=== PATIENT | male | born 1935 | race Caucasian/White ===

== ENCOUNTER 2017-09-02 18:22 | Inpatient (IN) ==
[2017-09-02] MEDS ORDERED: 0.9 % Sodium Chloride 1,000 ML IVC ONE ×2 (18:45→19:25)
[2017-09-02] MEDS ORDERED: Vancomycin 1,000 MG in D5% in Water 250 ML IVPB ONE ×2 (19:09→23:00)
[2017-09-02] MEDS ORDERED: Piperacillin/Tazobactam 3.375 GM in D5% in Water (Mini-Bag+) 100 ML IVPB ONE (19:09)
--- NOTE | 2017-09-02 19:11 | Emergency Department Note ---
Disposition Clinical Impression: CHF exacerbation Qualifiers: Congestive heart failure type: systolic Qualified Code(s): I50.23 - Acute on chronic systolic (congestive) heart failure Sepsis Qualifiers: Sepsis type: sepsis due to unspecified organism Qualified Code(s): A41.9 - Sepsis, unspecified organism Pneumonia Qualifiers: Pneumonia type: due to unspecified organism Laterality: bilateral Lung location : lower lobe of lung Qualified Code(s): J18.9 - Pneumonia, unspecified organism Cellulitis Qualifiers: Site of cellulitis: extremity Site of cellulitis of extremity: lower extremity Laterality: unspecified laterality Qualified Code(s): L03.119 - Cellulitis of unspecified part of limb Disposition: Admitted As Inpatient Condition: Undetermined Referrals: Amaris Wood CNP [Primary Care Provider] - Forms: ED Satisfaction Letter Time of Disposition: 20:31 General Adult HPI - General Chief complaint: ED Shortness of Breath/Dyspnea Stated complaint: BOBBY Time Seen by Provider: 09/02/17 18:28 Source: patient, EMS Mode of arrival: EMS Limitations: no limitations Nursing Notes Reviewed: Yes Vital Signs Reviewed: Yes - History of Present Illness HPI Narrative: 82-year-old male with history of CHF that has been with fluid overload of the course of the past 3 weeks with an increase in his Lasix use arrives to [facility] emergency department with increased shortness of breath, fever, tremor, worsening swelling of bilateral lower extremities. The patient's family states that he is unable to get up and use the restroom due to overall weakness. The patient has been a slightly altered at home as well and not answering questions correctly according to the patient's son. The patient states he was recently in the emergency department for similar complaint and evaluation with the patient was discharged at this time. The patient's family members states they are concerned about pneumonia. The patient denies any chest pain this time, denies any abdominal pain, unilateral leg swelling, weakness one set of the other, headache, nuchal rigidity. The patient does admit to dyspnea. Onset (ago): week(s) (3) Pain Scale: 0 Improves with: nothing Worsens with: nothing Associated symptoms: Reports: cough, fever/chills, shortness of breath - Related Data Home Medications Medication Instructions Recorded Confirmed Aspirin Enteric Coated [Aspirin EC] 81 mg PO DAILY 06/27/15 06/27/15 Fenofibrate [Lofibra] 160 mg PO DAILY 06/27/15 06/27/15 Furosemide [Lasix] 40 mg PO DAILY 06/27/15 06/27/15 Gabapentin [Neurontin] 300 mg PO BID 06/27/15 06/27/15 GlipiZIDE [Glucotrol] 4 mg PO DAILY 06/27/15 06/27/15 Lisinopril [Zestril] 10 mg PO DAILY 06/27/15 06/27/15 Allergies Allergy/AdvReac Type Severity Reaction Status Date / Time sulfamethoxazole Allergy Nausea Verified 06/13/15 09:51 [From Bactrim] trimethoprim [From Bactrim] Allergy Nausea Verified 06/13/15 09:51 All systems ED: reviewed and negative except as stated. Constitutional: Reports: fever, chills. Denies: weakness Eyes: Denies: vision change ENT ED: Denies: congestion Cardiovascular: Reports: dyspnea on exertion, orthopnea, edema. Denies: chest pain, syncope Respiratory: Reports: dyspnea, sputum production. Denies: cough, wheezes Gastrointestinal: Denies: abdominal pain, nausea, vomiting Musculoskeletal: Denies: back pain Neurological: Reports: weakness. Denies: headache, numbness, paresthesias, confusion, abnormal gait Past Medical History - Past Medical History Attestation: Yes The following information was validated with the patient. Source: patient Medical history: Reports: CHF, COPD, coronary artery disease, diabetes, GERD, hyperlipidemia, hypertension, venous stasis Surgical history: Reports: appendectomy, cholecystectomy, coronary bypass (CABG) , herniorrhaphy Psychiatric history: Reports: depression - Social History Smoking Status: Former smoker Smokeless Tobacco Status: No Alcohol use: Reports: rarely Drug use: Reports: none Physical Exam - General Limitations: no limitations General appearance: alert, in no apparent distress - Head Head exam: atraumatic, normocephalic, normal inspection - Eye Eye exam: Present: normal appearance, PERRL, EOMI - ENT ENT exam: normal exam, normal oropharynx, mucous membranes moist - Neck Neck exam: Present: normal inspection, full ROM, trachea midline - Chest Chest inspection: Present: normal inspection, symmetric chest wall rise - Respiratory Respiratory exam: Present: accessory muscle use, prolonged expiratory phase, other (Rales). Absent: respiratory distress, wheezes - Cardiovascular Cardiovascular exam: Present: normal rhythm, tachycardia, normal heart sounds - Abdominal Exam Abdominal exam: Present: soft, Non-Tender. Absent: tenderness, distention, guarding, rebound, rigidity - Extremities Exam Extremities exam: Present: full ROM, tenderness, other (Bilateral lower extremity edema with heat and erythema and there are large amounts of fluid filled blisters on bilateral lower extremities. In addition the patient has mild ecchymotic lesions on the bilateral upper forearms. His appears to be bruising and not a rash like the patient is concerned about.) Course Vital Signs Temperature 99.9 F H 09/02/17 18:26 Pulse Rate 99 09/02/17 18:26 Respiratory Rate 14 09/02/17 18:26 Blood Pressure 133/72 09/02/17 18:26 O2 Sat by Pulse Oximetry 95 09/02/17 18:26 Temperature 99.9 F H 09/02/17 18:26 Pulse Rate 92 09/02/17 20:15 Respiratory Rate 28 09/02/17 20:15 Blood Pressure 110/67 09/02/17 20:15 O2 Sat by Pulse Oximetry 95 09/02/17 20:15 Oxygen Delivery Oxygen Delivery Room Air Medical Decision Making - MDM Narrative Medical decision making narrative: Patient's workup here in the emergency department consistent with both CHF exacerbation as well as concern for sepsis. The patient has a leukocytosis without a lactic acid. The patient has not been hypotensive here in the emergency department. Chest x-ray does demonstrate groundglass appearance consistent with possible pneumonia versus pulmonary edema. Given the patient's extensive bilateral lower surgery swelling and dyspnea, this is likely the etiology component exacerbating his difficulty breathing. The patient does note to have bilateral lower extremity cellulitis associated with the patient's fluid overload blisters. The patient was noted to have a pneumonia. The patient was started on BiPAP to attempt to push fluid out of his lungs. The patient was given IV fluids as well as IV antibiotic with concern for sepsis. The patient's blood pressure has remained stable. The patient's mentation has been appropriate since his arrival in the emergency department. The patient denies any other complaints at this time is resting comfortably on BiPAP. The patient will be admitted to the hospitalist service, accepted by Dr. Hauser. - Lab Data Lab results reviewed: Yes I reviewed the patient's lab results. Result diagrams: 09/02/17 19:13 09/02/17 19:13 Lab Results 09/02/17 09/02/17 09/02/17 Range/Units 19:13 19:13 19:13 WBC 10.5 (4.3-11.1) K/mcL RBC 5.18 (4.19-5.50) M/mcL Hgb 15.0 (12.9-16.9) g/dL Hct 49.2 (37.5-50.1) % MCV 95.0 (83.0-100.0) fL MCH 29.0 (28.0-33.3) pg MCHC 30.5 L (31.6-35.5) g/dL RDW 14.5 (11.5-14.5) % Plt Count 187 (140-400) K/mcL MPV 10.6 (9.4-12.4) fL Immature Gran % 0.6 (0-4) % Seg Neutrophils % 82.4 % Lymphocytes % 6.7 % Monocytes % 8.1 % Eosinophils % 1.7 % Basophils % 0.5 % Neutrophils # 8.7 (1.6-8.9) K/mcL Lymphocytes # 0.7 (0.6-4.6) K/mcL Monocytes # 0.9 (0.0-1.3) K/mcL Eosinophils # 0.2 (0.0-0.6) K/mcL Basophils # 0.1 (0.0-0.2) K/mcL Sodium 141 (136-145) mEq/L Potassium 5.0 H (3.5-4.5) mEq/L Chloride 94 L (98-109) mEq/L Carbon Dioxide 38 H (19-29) mEq/L BUN 44 H (8-26) mg/dL Creatinine 1.42 H (0.72-1.25) mg/dL Est GFR ( Amer) 58 L (> 60) Est GFR (Non-Af Amer) 48 L (> 60) BUN/Creatinine Ratio 31 H (6-26) Glucose 126 H (70-99) mg/dL Calculated Osmolality 305 H (280-300) Lactic Acid 2.1 (0.5-2.2) mmol/L Calcium 9.5 (8.6-10.8) mg/dL Phosphorus 1.6 L (2.3-4.7) mg/dL Magnesium 2.1 (1.6-2.6) mg/dL Troponin I (0-0.03) ng/mL B-Natriuretic Peptide (0-100) pg/mL 09/02/17 09/02/17 Range/Units 19:13 19:13 WBC (4.3-11.1) K/mcL RBC (4.19-5.50) M/mcL Hgb (12.9-16.9) g/dL Hct (37.5-50.1) % MCV (83.0-100.0) fL MCH (28.0-33.3) pg MCHC (31.6-35.5) g/dL RDW (11.5-14.5) % Plt Count (140-400) K/mcL MPV (9.4-12.4) fL Immature Gran % (0-4) % Seg Neutrophils % % Lymphocytes % % Monocytes % % Eosinophils % % Basophils % % Neutrophils # (1.6-8.9) K/mcL Lymphocytes # (0.6-4.6) K/mcL Monocytes # (0.0-1.3) K/mcL Eosinophils # (0.0-0.6) K/mcL Basophils # (0.0-0.2) K/mcL Sodium (136-145) mEq/L Potassium (3.5-4.5) mEq/L Chloride (98-109) mEq/L Carbon Dioxide (19-29) mEq/L BUN (8-26) mg/dL Creatinine (0.72-1.25) mg/dL Est GFR ( Amer) (> 60) Est GFR (Non-Af Amer) (> 60) BUN/Creatinine Ratio (6-26) Glucose (70-99) mg/dL Calculated Osmolality (280-300) Lactic Acid (0.5-2.2) mmol/L Calcium (8.6-10.8) mg/dL Phosphorus (2.3-4.7) mg/dL Magnesium (1.6-2.6) mg/dL Troponin I 0.02 (0-0.03) ng/mL B-Natriuretic Peptide 130 H (0-100) pg/mL - Radiology Data Radiology results reviewed: Yes I reviewed the patient's radiology results. - EKG Data EKG #1 EKG attestation: Yes I reviewed and interpreted this EKG. EKG results narrative: Heart rate 98 bpm. NC interval 140 ms. QTC 374 ms., Sinus rhythm. No ST elevation or ST depression noted. EKG similar in appearance to EKG from 2016. Attestation Statement - Attestation Attestation: I, Brian Henley DO, examined this patient [id number] and my medical decision-making was reviewed with Dr. Alec Hood, Resident Physician. I agree with the documented findings, disposition and treatment plan as described except to the extent set forth below. Please see my progress notes for details. 10-year-old male seen and examined the time of arrival. Patient presents emergency room for evaluation of shortness of breath generalized malaise confusion from home. Son is with him and confirms all these issues. Patient was just seen here about one week ago and discharged home. Patient is continued to have persistent issues since leaving our hospital. Patient has known cerebral distal lower extremities that appears to be worse than what it was prior. Patient has fluid overload with coarse crackles on his lung exam that are better when he sitting upright. He does describe some shortness of breath. Patient is not confused at this time is alert and oriented and this is confirmed by the son. The son said that he was definitely confused earlier this afternoon and did not know why. Patient is concerning for septic presentation started on broad-spectrum antibiotics covering for cellulitis, pneumonia. Also be treated for CHF exacerbation. Borderline febrile as well as tachycardic. Single given at this time as well as placing the patient on BiPAP to help pulmonary overload. IV Lasix to be given as well. Patient does have confounding presentation will attempt to control fluid and blood pressure with appropriate intervention despite his presentation with concern for fluid overload. Patient is not currently critically ill but will need close monitoring and evaluation. Disposition will be admission to the hospital for definitive management. See detailed documentation of the physical exam, medical intervention, medical decision-making and disposition.
[2017-09-02] MEDS ORDERED: Furosemide 40 MG/4 ML VIAL IVP ONE (19:25)
[2017-09-02 19:28] LABS: Basophils # 0.1 K/mcL (0.0-0.2); Basophils % 0.5 %; Eosinophils # 0.2 K/mcL (0.0-0.6); Eosinophils % 1.7 %; Hematocrit 49.2 % (37.5-50.1); Immature Granulocytes % 0.6 % (0-4); Lymphocytes # 0.7 K/mcL (0.6-4.6); Lymphocytes % 6.7 %; Mean Corpuscular HGB Conc 30.5 g/dL (31.6-35.5); Mean Platelet Volume 10.6 fL (9.4-12.4); Monocytes # 0.9 K/mcL (0.0-1.3); Monocytes % 8.1 %; Neutrophils # 8.7 K/mcL (1.6-8.9); Platelet Count 187 K/mcL (140-400); Red Blood Count 5.18 M/mcL (4.19-5.50); Red Cell Distribution Width 14.5 % (11.5-14.5); Segmented Neutrophils % 82.4 %
[2017-09-02 19:41] LABS: Calcium 9.5 mg/dL (8.6-10.8); Magnesium 2.1 mg/dL (1.6-2.6); Phosphorous 1.6 mg/dL (2.3-4.7)
[2017-09-02] MEDS ORDERED: Calcium Gluconate 1,000 MG in D5% in Water 100 ML IVPB ONE (20:51)
[2017-09-02] MEDS ORDERED: Furosemide 100 MG in 0.9 % Sodium Chloride 50 ML IVPB ONE (21:55)
[2017-09-02] MEDS ORDERED: Vancomycin 2,000 MG in D5% in Water 250 ML IVPB SCH (23:00)
[2017-09-02] MEDS ORDERED: NON-FORMULARY MEDICATION 1 EACH EACH (Oxygen [Oxygen] 2 L) NS SCH (23:15)
--- NOTE | 2017-09-02 23:19 | Internal Med History&Physical ---
Date of Encounter: 09/02/17 Time of Encounter: 23:17 Assessment and Plan (1) COPD exacerbation Current visit: Yes Status: Acute I would keep patient on IV steroids and [id number] nebulizer treatments. (2) CHF exacerbation Current visit: Yes Status: Acute I will start the patient on Lasix 80 mg IV twice-daily would placea amor catheter. Strict intake and output.. Qualifiers: Congestive heart failure type: systolic Qualified Code(s): I50.23 - Acute on chronic systolic (congestive) heart failure (3) Cellulitis Current visit: Yes Status: Acute We will start the patient on vancomycin and Zosyn. Blood cultures Qualifiers: Site of cellulitis: extremity Site of cellulitis of extremity: lower extremity Laterality: unspecified laterality Qualified Code(s): L03.119 - Cellulitis of unspecified part of limb (4) Hyperkalemia Current visit: Yes Status: Acute Should improve with aggressive diuresis. He also received sodium bicarb and Ca Gluconate. (5) Acute respiratory failure with hypoxia Current visit: Yes Status: Acute Mainly due to congestive heart failure exacerbation. Less Contribution from COPD exacerbation. We will get an arterial blood gas. Advised the patient uses BiPAP at night. Internal Medicine - H&P: HPI Chief complaint: sob History of present illness: Mr. Curtis is a 82 year old male with multiple medical problems including congestive heart failure, COPD, obstructive sleep apnea, chronic venous stasis presents emergency room today with a multitude of complains. Patient has been progressively short of breath with the past few days to the point where he is unable to breathe rest. Shortness of breath get worse when he lays on his back. He has also been noticing increased bilateral swelling in both lower extremities and both his legs are red warm and tender. He has been having fevers and chills. He has been having productive cough with scant sputum production. Past Med Surg Social Fam HX - Past Medical History Medical history: CHF, COPD, coronary artery disease, diabetes, GERD, hyperlipidemia, hypertension, venous stasis Psychiatric history: depression - Past Surgical History Surgical History: appendectomy, cholecystectomy, coronary bypass (CABG), herniorrhaphy - Social History Smoking Status: Former smoker Smokeless Tobacco Status: No Alcohol use: rarely Drug use: none Internal Medicine - H&P: Meds Aspirin Enteric Coated [Aspirin EC] 81 mg PO DAILY 06/27/15 [History] Fenofibrate [Lofibra] 160 mg PO DAILY 06/27/15 [History] Furosemide [Lasix] 40 mg PO TID 06/27/15 [History] Gabapentin [Neurontin] 900 mg PO QAM 06/27/15 [History] Albuterol Sulfate [Albuterol Inhaler] 2 puff IH Q4H PRN 09/02/17 [History] Gabapentin [Neurontin] 600 mg PO HS 09/02/17 [History] Glimepiride [Amaryl] 4 mg PO QAM 09/02/17 [History] Lisinopril [Zestril] 20 mg PO DAILY 09/02/17 [History] Oxycodone HCl/Acetaminophen [Percocet 7.5-325 mg Tablet] 1 each PO Q4-6H PRN [History] Oxygen 2 l NS AD 09/02/17 [History] 3 Allergy/AdvReac Type Severity Reaction Status Date / Time sulfamethoxazole Allergy Nausea Verified 06/13/15 09:51 [From Bactrim] trimethoprim [From Bactrim] Allergy Nausea Verified 06/13/15 09:51 All Systems PM: A 10-system review of systems was performed and is negative for pertinent findings except as documented above in the HPI. Review of systems: 10 point review of systems is negative except for HPI - Constitutional Vitals: Temp Pulse Resp BP Pulse Ox 100.2 F H 83 19 93/52 94 09/02/17 21:50 09/02/17 21:50 09/02/17 21:50 09/02/17 21:50 09/02/17 21:50 Exam: Gen.: patient is alert oriented times 3 not in distress cardiac: Normal S1, S2, no additional sounds or murmurs chest: Diminished air entry, expiratory wheeze, basal crackles Abdomen: Soft, no tenderness No rebound lower extremity 3+ swelling, redness, warmth in both lower extremeties Neuro: no focal deficits Internal Med - H&P Results - Labs CBC & Chem 7: 09/02/17 19:13 09/02/17 19:13
[2017-09-02] MEDS: Ipratropium/Albuterol Neb 3 ML IH SCH (23:35)
[2017-09-02 23:52] LABS: ABG Base Excess 11 mEq/L (-2 to 3); ABG HCO3 41 mEq/L (21-27); ABG Oxygen Saturation 92 % (95-98); ABG PCO2 73 mmHg (35-45); ABG PH 7.36 pH Units (7.32-7.45); ABG PO2 70 mmHg (85-104); ABG TCO2 44 mEq/L (20-26)
[2017-09-03] MEDS: methylPREDNISolone 125 MG/2 ML VIAL IVP SCH ×3 (01:02→12:17)
[2017-09-03] MEDS: Piperacillin/Tazobactam 3.375 GM in D5% in Water (Mini-Bag+) 100 ML IVPB SCH ×2 (01:15→08:09)
[2017-09-03] MEDS: Insulin LISPRO 300 UNITS/3 ML VIAL SQ SCH ×7 (01:34→21:19)
[2017-09-03 03:34] LABS: Basophils # 0.1 K/mcL (0.0-0.2); Basophils % 0.6 %; Eosinophils # 0.1 K/mcL (0.0-0.6); Eosinophils % 1.2 %; Hematocrit 46.9 % (37.5-50.1); Hemoglobin 14.4 g/dL (12.9-16.9); Immature Granulocytes % 0.6 % (0-4); Immature Platelets 5.3 % (1.1-6.1); Lymphocytes # 0.7 K/mcL (0.6-4.6); Lymphocytes % 7.8 %; Mean Corpuscular HGB Conc 30.7 g/dL (31.6-35.5); Mean Corpuscular Hemoglobin 28.9 pg (28.0-33.3); Mean Corpuscular Volume 94.2 fL (83.0-100.0); Mean Platelet Volume 10.9 fL (9.4-12.4); Monocytes # 0.4 K/mcL (0.0-1.3); Monocytes % 4.7 %; Neutrophils # 7.1 K/mcL (1.6-8.9); Platelet Count 170 K/mcL (140-400); Red Blood Count 4.98 M/mcL (4.19-5.50); Red Cell Distribution Width 14.6 % (11.5-14.5); Segmented Neutrophils % 85.1 %
[2017-09-03] MEDS: Ipratropium/Albuterol Neb 3 ML IH SCH ×6 (03:36→23:51)
[2017-09-03 03:50] LABS: Calcium 9.3 mg/dL (8.6-10.8); Magnesium 2.1 mg/dL (1.6-2.6); Potassium 4.8 mEq/L (3.5-4.5)
[2017-09-03 03:56] LABS: Hemoglobin A1C 6.2 %
[2017-09-03] MEDS: Aspirin Enteric Coated 81 MG Tablet PO SCH (08:09)
[2017-09-03] MEDS: Furosemide 40 MG/4 ML VIAL IVP SCH ×2 (08:09→17:14)
[2017-09-03] MEDS: Fenofibrate 54 MG TABLET PO SCH (08:09)
[2017-09-03] MEDS: Ammonium Lactate 30 APPL/225 GM BOTTLE TP SCH ×2 (08:10→21:19)
[2017-09-03] MEDS ORDERED: Dextrose Gel 15 GM PO PRN ×2 (08:13)
[2017-09-03] MEDS ORDERED: D5% in Water 1,000 ML IVC PRN (08:13)
[2017-09-03] MEDS ORDERED: *HR* Dextrose 50 % in Water (Syg) 50 ML SYRINGE IVP PRN (08:13)
[2017-09-03] MEDS ORDERED: Albuterol 2.5 MG/3 ML NEBULIZER IH PRN (08:15)
[2017-09-03] MEDS: Vancomycin 1,500 MG in D5% in Water 250 ML IVPB SCH (12:53)
[2017-09-03] MEDS ORDERED: methylPREDNISolone 125 MG/2 ML VIAL IVP SCH (15:02)
--- NOTE | 2017-09-03 16:11 | Electrocardiograph Report ---
[address] [place], [place] [address] Test Date: 2017-09-02 Pat Name: Alec Curtis Department: 103 Room: 2A26 Gender: M Fashion Stylist: KULWANT : 1935 Requested By: Corky Ocampo Order Number: [id number] Reading MD: Alfonso Huffman Measurements Intervals [place] Rate: 98 P: -61 SD: 140 QRS: -31 QRSD: 85 T: 46 QT: 319 QTc: 374 Interpretive Statements SUPRAVENTRICULAR RHYTHM MARKED LEFT AXIS DEVIATION LOW QRS VOLTAGE IN PRECORDIAL LEADS POSSIBLE ANTERIOR MYOCARDIAL INFARCTION, PROBABLY OLD Electronically Signed On 09-03-2017 16:09:40 EDT by Alfonso Huffman
--- NOTE | 2017-09-03 18:17 | Internal Med Progress Note ---
Date of Encounter: 09/03/17 Time of Encounter: 11:00 - Assessment and plan (1) Acute respiratory failure with hypoxia Current Visit: Yes Status: Acute Assessment and plan: Suspect secondary to heart failure exacerbation in addition to COPD exacerbation. Management as below. (2) CHF exacerbation Current Visit: Yes Status: Acute Assessment and plan: Continue IV diuresis with Lasix. Qualifiers: Congestive heart failure type: systolic Qualified Code(s): I50.23 - Acute on chronic systolic (congestive) heart failure (3) COPD exacerbation Current Visit: Yes Status: Acute Assessment and plan: We will continue supplemental oxygen with Solu-Medrol and duo nebs. (4) Cellulitis Current Visit: Yes Status: Acute Assessment and plan: Continue vancomycin and ceftriaxone. Qualifiers: Site of cellulitis: extremity Site of cellulitis of extremity: lower extremity Laterality: unspecified laterality Qualified Code(s): L03.119 - Cellulitis of unspecified part of limb - Subjective Interval history: No acute events overnight - Constitutional Vitals: Temp Pulse Resp BP Pulse Ox 97.8 F 80 19 124/70 93 09/03/17 16:41 09/03/17 16:41 09/03/17 16:50 09/03/17 16:41 09/03/17 16:50 - Respiratory Respiratory exam: Present: CTAB. Absent: accessory muscle use, rales, rhonchi, wheezes - Cardiovascular Cardiovascular exam: Present: RRR, +S1, +S2. Absent: diastolic murmur, gallop, rubs, systolic murmur - Expanded Lower Extremities Exam Ankle exam: Present: swelling (Bilateral lower extremity edema up to proximal tibia) - Skin Skin exam: Present: erythema (Bilateral erythematous) Internal Medicine: Result - Labs CBC & Chem 7: 09/03/17 03:21 09/03/17 03:21 Labs: Short CBC 09/03/17 Range/Units 03:21 WBC 8.3 (4.3-11.1) K/mcL Hgb 14.4 (12.9-16.9) g/dL Hct 46.9 (37.5-50.1) % Plt Count 170 (140-400) K/mcL Neutrophils # 7.1 (1.6-8.9) K/mcL BMP 09/03/17 03:21 Sodium 139 Potassium 4.8 H Chloride 95 L Carbon Dioxide 34 H BUN 49 H Creatinine 1.47 H Glucose 198 H Calcium 9.3 Cardiac Enzymes 09/03/17 09/03/17 Range/Units 03:21 11:26 Troponin I 0.04 H* 0.03 (0-0.03) ng/mL - ABG Interpretation ABG results: ABG ABG pH 7.36 pH Units (7.32-7.45) 09/02/17 23:45 ABG pCO2 73 mmHg (35-45) H* 09/02/17 23:45 ABG pO2 70 mmHg (85-104) L 09/02/17 23:45 ABG O2 Saturation 92 % (95-98) L 09/02/17 23:45 Consult Discharge Plan - Plan Referrals: Amaris Wood, WREATH MAKER [Primary Care Provider] - (web request...)
[2017-09-03] MEDS: Gabapentin 300 MG CAPSULE PO SCH (21:19)
[2017-09-04] MEDS: Ipratropium/Albuterol Neb 3 ML IH SCH ×6 (04:02→23:30)
[2017-09-04] MEDS: Menthol 9.1 MG LOZENGE PO PRN ×2 (04:04→06:48)
[2017-09-04] MEDS: Insulin LISPRO 300 UNITS/3 ML VIAL SQ SCH ×4 (08:46→22:37)
[2017-09-04] MEDS: Aspirin Enteric Coated 81 MG Tablet PO SCH (08:47)
[2017-09-04] MEDS: Furosemide 40 MG/4 ML VIAL IVP SCH ×3 (08:47→17:38)
[2017-09-04] MEDS: Fenofibrate 54 MG TABLET PO SCH (08:47)
[2017-09-04] MEDS: Nystatin POWDER 30 GM BOTTLE TP SCH ×2 (08:47→22:45)
[2017-09-04] MEDS: Ammonium Lactate 30 APPL/225 GM BOTTLE TP SCH ×2 (08:48→22:37)
[2017-09-04 09:38] LABS: Basophils % 0.1 %; Hematocrit 48.4 % (37.5-50.1); Hemoglobin 14.9 g/dL (12.9-16.9); Immature Granulocytes % 0.8 % (0-4); Lymphocytes # 0.7 K/mcL (0.6-4.6); Lymphocytes % 6.3 %; Mean Corpuscular HGB Conc 30.8 g/dL (31.6-35.5); Mean Corpuscular Hemoglobin 28.7 pg (28.0-33.3); Mean Corpuscular Volume 93.3 fL (83.0-100.0); Mean Platelet Volume 10.9 fL (9.4-12.4); Monocytes # 0.8 K/mcL (0.0-1.3); Monocytes % 6.5 %; Neutrophils # 9.9 K/mcL (1.6-8.9); Platelet Count 165 K/mcL (140-400); Red Blood Count 5.19 M/mcL (4.19-5.50); Red Cell Distribution Width 14.6 % (11.5-14.5); Segmented Neutrophils % 86.3 %
[2017-09-04 09:50] LABS: Potassium 4.5 mEq/L (3.5-4.5)
[2017-09-04 13:28] LABS: Vancomycin,Trough 13.2 mcg/mL (10-20)
[2017-09-04] MEDS: Vancomycin 1,500 MG in D5% in Water 250 ML IVPB SCH (14:15)
[2017-09-04] MEDS: *HR* Heparin 5,000 UNIT/ML VIAL SQ SCH (17:40)
--- NOTE | 2017-09-04 18:44 | Internal Med Progress Note ---
Date of Encounter: 09/04/17 Time of Encounter: 11:00 - Assessment and plan (1) Acute respiratory failure with hypoxia Current Visit: Yes Status: Acute Assessment and plan: Suspect secondary to heart failure exacerbation in addition to COPD exacerbation. Management as below. (2) CHF exacerbation Current Visit: Yes Status: Acute Assessment and plan: Echocardiogram ordered Continue IV diuresis with Lasix. Qualifiers: Congestive heart failure type: unspecified congestive heart failure type Qualified Code(s): I50.9 - Heart failure, unspecified (3) COPD exacerbation Current Visit: Yes Status: Acute Assessment and plan: We will continue supplemental oxygen with change Solu-Medrol to oral prednisone and continue duo nebs. (4) Cellulitis Current Visit: Yes Status: Acute Assessment and plan: Continue vancomycin and ceftriaxone. Qualifiers: Site of cellulitis: extremity Site of cellulitis of extremity: lower extremity Laterality: unspecified laterality Qualified Code(s): L03.119 - Cellulitis of unspecified part of limb - Subjective Interval history: No acute events overnight - Constitutional Vitals: Temp Pulse Resp BP Pulse Ox 98.6 F 91 17 151/79 91 09/04/17 16:53 09/04/17 16:53 09/04/17 16:53 09/04/17 16:53 09/04/17 16:53 - Respiratory Respiratory exam: Present: CTAB. Absent: accessory muscle use, rales, rhonchi, wheezes - Cardiovascular Cardiovascular exam: Present: RRR, +S1, +S2. Absent: diastolic murmur, gallop, rubs, systolic murmur - Expanded Lower Extremities Exam Lower Leg exam: Present: swelling (Bilateral up to testicles) Internal Medicine: Result - Labs CBC & Chem 7: 09/04/17 09:12 09/04/17 09:12 Labs: Short CBC 09/04/17 Range/Units 09:12 WBC 11.5 H (4.3-11.1) K/mcL Hgb 14.9 (12.9-16.9) g/dL Hct 48.4 (37.5-50.1) % Plt Count 165 (140-400) K/mcL Neutrophils # 9.9 H (1.6-8.9) K/mcL BMP 09/04/17 09:12 Sodium 139 Potassium 4.5 Chloride 92 L Carbon Dioxide 36 H BUN 54 H Creatinine 1.45 H Glucose 297 H Calcium 9.0 - ABG Interpretation ABG results: ABG ABG pH 7.36 pH Units (7.32-7.45) 09/02/17 23:45 ABG pCO2 73 mmHg (35-45) H* 09/02/17 23:45 ABG pO2 70 mmHg (85-104) L 09/02/17 23:45 ABG O2 Saturation 92 % (95-98) L 09/02/17 23:45 Consult Discharge Plan - Plan Referrals: Amaris Wood CNP [Primary Care Provider] - 09/11/17 10:00 am ()
[2017-09-04] MEDS ORDERED: Perflutren Lipid Microsphere 1.3 ML in 0.9 % Sodium Chloride 8.7 ML IVP ONE (21:30)
[2017-09-04] MEDS ORDERED: Perflutren Lipid Microsphere 2 ML VIAL ONE (21:35)
[2017-09-04] MEDS: Gabapentin 300 MG CAPSULE PO SCH (22:36)
[2017-09-05] MEDS: Ipratropium/Albuterol Neb 3 ML IH SCH ×5 (04:16→19:37)
[2017-09-05] MEDS: *HR* Glimepiride 4 MG TABLET PO SCH (08:45)
[2017-09-05] MEDS: Fenofibrate 54 MG TABLET PO SCH (08:45)
[2017-09-05] MEDS: Furosemide 40 MG/4 ML VIAL IVP SCH ×3 (08:45→16:33)
[2017-09-05] MEDS: predniSONE 20 MG TABLET PO SCH (08:45)
[2017-09-05] MEDS: Aspirin Enteric Coated 81 MG Tablet PO SCH (08:46)
[2017-09-05] MEDS: Insulin LISPRO 300 UNITS/3 ML VIAL SQ SCH ×4 (08:46→21:18)
[2017-09-05] MEDS: *HR* Heparin 5,000 UNIT/ML VIAL SQ SCH ×2 (08:46→17:37)
[2017-09-05] MEDS: Nystatin POWDER 30 GM BOTTLE TP SCH ×2 (08:47→21:19)
[2017-09-05] MEDS: Ammonium Lactate 30 APPL/225 GM BOTTLE TP SCH ×2 (08:47→21:17)
[2017-09-05 10:36] LABS: Basophils % 0.1 %; Hemoglobin 16.2 g/dL (12.9-16.9); Immature Granulocytes % 0.5 % (0-4); Lymphocytes # 0.7 K/mcL (0.6-4.6); Lymphocytes % 7.2 %; Mean Corpuscular HGB Conc 30.6 g/dL (31.6-35.5); Mean Corpuscular Hemoglobin 28.7 pg (28.0-33.3); Mean Corpuscular Volume 93.8 fL (83.0-100.0); Mean Platelet Volume 11.4 fL (9.4-12.4); Monocytes # 0.6 K/mcL (0.0-1.3); Monocytes % 5.8 %; Neutrophils # 8.8 K/mcL (1.6-8.9); Platelet Count 200 K/mcL (140-400); Red Blood Count 5.65 M/mcL (4.19-5.50); Red Cell Distribution Width 14.4 % (11.5-14.5); Segmented Neutrophils % 86.4 %
[2017-09-05 10:51] LABS: BUN/Creatinine Ratio 41 (6-26); Blood Urea Nitrogen 56 mg/dL (8-26); Calcium 9.7 mg/dL (8.6-10.8); Chloride 90 mEq/L (98-109); Glucose 237 mg/dL (70-99); Osmolality,Calculated 319 (280-300); Potassium 4.3 mEq/L (3.5-4.5); Sodium 143 mEq/L (136-145); eGFR For African Americans > 60 (> 60); eGFR For Non-African Americans 50 (> 60)
[2017-09-05 11:07] LABS: Carbon Dioxide 41 mEq/L (19-29)
--- NOTE | 2017-09-05 11:37 | Cardiology Consult Note ---
<Tanner Peguero - Last Filed: 09/05/17 12:12> Date of Encounter: 09/05/17 Time of Encounter: 11:34 Assessment and Plan (1) CHF exacerbation Current Visit: Yes Status: Acute ECHO performed yesterday: LVEF 60%. Mild left ventricular diastolic dysfunction. Normal right ventricular structure and function. No significant valvular dysfunction. No pulmonary hypertension BNP of 146 to 130, steroid use, high sodium diet, shortness of breath, orthopnea and hypoxia is more consistent with COPD excerbation who is retaining based off his ABG. Kidney function is improving. Mild diastolic dysfunction can be worsening his COPD exacerbation as well. Based off his current ECHO and clinical condition, there is no urgent intervention required at this time. Recommend outpatient stress test after discharge to rule out any ischemic etiology. Patient refused stress test. Continue COPD protocol with Lasix. Will continue to follow. Qualifiers: Congestive heart failure type: diastolic Qualified Code(s): I50.33 - Acute on chronic diastolic (congestive) heart failure (2) COPD exacerbation Current Visit: Yes Status: Acute Defer to medicine team. See above. (3) Shortness of breath Current Visit: Yes Status: Acute See above (4) Lymphedema of both lower extremities Current Visit: Yes Status: Acute (5) Lymphedema of both upper extremities Current Visit: Yes Status: Acute (6) Venous stasis dermatitis of both lower extremities Current Visit: Yes Status: Acute (7) Poor diet Current Visit: Yes Status: Acute Reports 5 sodas per day with frequent fast food involving a high sodium diet. Dietary consult placed. Discussion w patient/family: The assessment and plan as outlined above was discussed with the patient and/or family members who expressed understanding and agreement. All questions were answered. Thank you for involving us in the care of your patient. Please call with any questions. History of Present Illness Consult date: 09/05/17 Chief complaint: shortness of breath History of present illness: Mr. Curtis is a very pleasant 82 year old male with a past medical history of COPD, chronic venous ulcers, CHF and LEIGHANN who presented to the [facility] ED on with a chief complaint of shortness of breath, worsening lower extremity swelling and weakness. On arrival, CXR demonstrated mildly increasing interstitial marking with possible edema, cardiomegaly and patchy bibasilar opacities with atelectasis. EKG was benign. Neg Trops x2. BNP was 146. Patient was started on BiPAP, IV lasix and antibiotics for possible pneumonia and sepsis. He was subsequently admitted via the hospitalist service for COPD exacerbation along possible CHF. ECHO was performed on 09/04/17 and demonstrated LV 60% with mild diastolic dysfunction. No evidence of pulm HTN or valvular disease and thus, cardiology was consulted for further management of possible CHF exacerbation. On evaluation, he reports the SOB occurs at rest and reports orthopnea. Denies any CP, palpitations or PND. Pertinent cardiac history shows multiple catherizations with stents over 15 years ago with a 3- vessel bypass [place] roughly 14 years ago. No cardiology followup since then. His PCP is Dr. Wood here in [place] with last followup 2 weeks ago. BNP today was down to 130. Regular diet consists of 5 sodas per day with frequent [employer] with extremly high sodium diet. No exercise reported. Past Med Surg Social Fam HX - Past Medical History Medical history: CHF, COPD, coronary artery disease, diabetes, GERD, hyperlipidemia, hypertension, venous stasis Psychiatric history: depression - Past Surgical History Surgical History: appendectomy, cholecystectomy, coronary bypass (CABG), herniorrhaphy - Social History Smoking Status: Former smoker Smokeless Tobacco Status: No Alcohol use: rarely Drug use: none - Family History Mother Living Status: Hx Family Cardiac Disorders: Yes Father Living Status: Medications and Allergies Aspirin Enteric Coated [Aspirin EC] 81 mg PO DAILY 06/27/15 [History] Fenofibrate [Lofibra] 160 mg PO DAILY 06/27/15 [History] Furosemide [Lasix] 40 mg PO TID 06/27/15 [History] Gabapentin [Neurontin] 900 mg PO QAM 06/27/15 [History] Albuterol Sulfate [Albuterol Inhaler] 2 puff IH Q4H PRN 09/02/17 [History] Gabapentin [Neurontin] 600 mg PO HS 09/02/17 [History] Glimepiride [Amaryl] 4 mg PO QAM 09/02/17 [History] Lisinopril [Zestril] 20 mg PO DAILY 09/02/17 [History] Oxycodone HCl/Acetaminophen [Percocet 7.5-325 mg Tablet] 1 each PO Q4-6H PRN [History] Oxygen 2 l NS AD 09/02/17 [History] 3 Allergy/AdvReac Type Severity Reaction Status Date / Time sulfamethoxazole Allergy Nausea Verified 06/13/15 09:51 [From Bactrim] trimethoprim [From Bactrim] Allergy Nausea Verified 06/13/15 09:51 All Systems Review: A 10-system review of systems was performed and is negative for pertinent findings except as documented above in the HPI. - Constitutional Constitutional: no fever(s), no headache(s) - Cardiovascular Cardiovascular: as per HPI - Respiratory Respiratory: dyspnea, no hemoptysis - Gastrointestinal Gastrointestinal: no abdominal pain - Genitourinary Genitourinary: no dysuria - Musculoskeletal Musculoskeletal: no back pain - Integumentary Integumentary: erythema (lower extremities) - Neurological Neurological: no abnormal speech - Psychiatric Psychiatric: no anxiety Physical Examination Vital Signs, Last 4 Hours Temp Pulse Resp BP Pulse Ox 09/05/17 10:40 97.7 F 88 21 121/73 95 09/05/17 08:59 92 09/05/17 07:53 20 92 General: Conversant, No Apparent Distress HEENT: Atraumatic, Normocephaly, Mucus Membranes Moist Neck: No JVD, Normal carotid pulses Cardiac: Reg Rate and Rhythm, Normal S1 and S2, No Murmur Lungs: Normal Breath Sounds, No Wheeze, Rales, Rhonchi Neuro: Alert and responsive, No focal deficits noted Abdomen: Soft, Non-Tender Skin: Other (bilateral lower extremity venous stasis dermatitis) Musculoskeletal: No Chest Wall Tenderness Extremities: Other (edema) Results 09/05/17 09:32 09/05/17 09:32 Lab Results 09/04/17 09/05/17 09/05/17 09:12 09:32 09:32 WBC 10.2 Hgb 16.2 Hct 53.0 H Plt Count 200 Sodium 139 143 Potassium 4.5 4.3 Chloride 92 L 90 L Carbon Dioxide 36 H 41 H* BUN 54 H 56 H Creatinine 1.45 H 1.38 H Glucose 297 H 237 H Calcium 9.0 9.7 Consult Discharge Plan - Plan Instructions: Heart Failure (DC), Acute Respiratory Distress Syndrome (DC), Chronic Obstructive Pulmonary Disease (DC) Referrals: Amaris Wood CNP [Primary Care Provider] - 09/11/17 10:00 am () <MoJayna ramos - Last Filed: 09/05/17 13:14> Date of Encounter: 09/05/17 - Attending Attestation I examined this patient and my medical decision-making was reviewed with the Resident Physician. I agree with the documented findings, disposition and treatment plan as described except to the extent set forth below. 82-year-old male presents to the respiratory with increasing shortness of breath and bilateral lower extremity edema with his most recent echocardiogram revealing a preserved ejection fraction of 60% grade 1 diastolic dysfunction and no major valvular abnormalities. Patient also describes COPD which uses multiple inhalers. He has been diuresed approximately 10 pounds and is unclear on his dry weight. He has a history of coronary disease with CABG in the past however denies any chest pain, PND, presyncope or syncope. his chest x-ray reveals mild interstitial edema. Mild congestive heart failure with preserved ejection fraction. Likely culprit is dietary indiscretions. Patient drinks 5 cans of pop eats significant portions of high sodium content foods. Dietary consult would likely benefit him. Assessment and Plan Discussion w patient/family: The assessment and plan as outlined above was discussed with the patient and/or family members who expressed understanding and agreement. All questions were answered. Thank you for involving us in the care of your patient. Please call with any questions. History of Present Illness History of present illness: Mr. Curtis is a 82 year old male All Systems Review: A 10-system review of systems was performed and is negative for pertinent findings except as documented above in the HPI. Physical Examination Vital Signs, Last 4 Hours Temp Pulse Resp BP Pulse Ox 09/05/17 11:38 18 94 09/05/17 10:40 97.7 F 88 21 121/73 95 Results 09/05/17 09:32 09/05/17 09:32 Lab Results 09/05/17 09/05/17 09:32 09:32 WBC 10.2 Hgb 16.2 Hct 53.0 H Plt Count 200 Sodium 143 Potassium 4.3 Chloride 90 L Carbon Dioxide 41 H* BUN 56 H Creatinine 1.38 H Glucose 237 H Calcium 9.7
[2017-09-05] MEDS: Vancomycin 1,500 MG in D5% in Water 250 ML IVPB SCH (12:59)
[2017-09-05] MEDS ORDERED: Aminoglycoside Consult 1 EACH MC ONE (15:05)
--- NOTE | 2017-09-05 16:19 | Internal Med Progress Note ---
Date of Encounter: 09/05/17 Time of Encounter: 11:00 - Assessment and plan (1) Acute and chronic respiratory failure with hypoxia Current Visit: Yes Status: Acute Assessment and plan: -Suspect secondary to acute on chronic systolic heart failure and COPD exacerbation. -Management as below. (2) Acute on chronic diastolic (congestive) heart failure Current Visit: Yes Status: Acute Assessment and plan: -Echocardiogram on 09/04/17 showed: LVEF 60%. Mild left ventricular diastolic dysfunction. Normal right ventricular structure and function. No significant valvular dysfunction. No pulmonary hypertension -Cardiology was consult and suspects mild diastolic dysfunction; no urgent intervention required at this time. -Recommendations for outpatient stress test after discharge to rule out any ischemic etiology. -Will continue IV diuresis; patient has diuresed over 11 L since admission. (3) COPD exacerbation Current Visit: Yes Status: Acute Assessment and plan: -Continue oral prednisone with nebulizer treatment (4) Cellulitis Current Visit: Yes Status: Acute Assessment and plan: -Suspect bilateral erythema secondary to lower extremity edema due to volume overload and less likely infection. -We will de-escalate antibiotics to oral doxycycline Qualifiers: Site of cellulitis: extremity Site of cellulitis of extremity: lower extremity Laterality: unspecified laterality Qualified Code(s): L03.119 - Cellulitis of unspecified part of limb (5) DVT prophylaxis Current Visit: Yes Status: Acute Assessment and plan: Subcutaneous heparin - Subjective Interval history: Patient's lower extremity edema has improved after diuresing approximately 2 L - Constitutional Vitals: Temp Pulse Resp BP Pulse Ox 97.7 F 87 18 157/72 92 09/05/17 15:05 09/05/17 15:05 09/05/17 15:57 09/05/17 15:05 09/05/17 15:57 - Respiratory Respiratory exam: Present: CTAB. Absent: accessory muscle use, rales, rhonchi, wheezes - Cardiovascular Cardiovascular exam: Present: RRR, +S1, +S2. Absent: diastolic murmur, gallop, rubs, systolic murmur - Expanded Lower Extremities Exam Lower Leg exam: Present: swelling (Extremity edema improving) - Skin Skin exam: Present: erythema (Erythema has diminished) Internal Medicine: Result - Labs CBC & Chem 7: 09/05/17 09:32 09/05/17 09:32 Labs: Short CBC 09/05/17 Range/Units 09:32 WBC 10.2 (4.3-11.1) K/mcL Hgb 16.2 (12.9-16.9) g/dL Hct 53.0 H (37.5-50.1) % Plt Count 200 (140-400) K/mcL Neutrophils # 8.8 (1.6-8.9) K/mcL BMP 09/05/17 09:32 Sodium 143 Potassium 4.3 Chloride 90 L Carbon Dioxide 41 H* BUN 56 H Creatinine 1.38 H Glucose 237 H Calcium 9.7 - ABG Interpretation ABG results: ABG ABG pH 7.36 pH Units (7.32-7.45) 09/02/17 23:45 ABG pCO2 73 mmHg (35-45) H* 09/02/17 23:45 ABG pO2 70 mmHg (85-104) L 09/02/17 23:45 ABG O2 Saturation 92 % (95-98) L 09/02/17 23:45 - Impressions Impressions Echocardiogram 09/04/17 18:42 Impressions: LVEF 60%. Mild left ventricular diastolic dysfunction. Normal right ventricular structure and function. No significant valvular dysfunction. No pulmonary hypertension. Left Ventricular Wall Motion: Rest Echo Findings All wall segments showed normal motion. Findings: Study Quality * Technically adequate exam. ECG Findings * Normal sinus rhythm. Left Ventricle * LVEF 60%. * Normal LV chamber size, wall thickness and function. * Mild left ventricular diastolic dysfunction. * Definity echo contrast was used. Right Ventricle * Normal right ventricular structure and function. Left Atrium * Normal left atrial size. Right Atrium * Normal right atrial size. Aortic Valve * No aortic regurgitation. * Aortic valve not well visualized. * No aortic stenosis. Mitral Valve * No mitral regurgitation. * Normal mitral valve structure. * No mitral stenosis. Tricuspid Valve * Tricuspid valve not well visualized. * No tricuspid regurgitation. Pulmonic Valve * Pulmonic valve is not well visualized. * No pulmonic stenosis. * No pulmonic regurgitation. Pulmonary Artery * Pulmonary artery not well visualized. Aorta * Normally sized aortic root. Pericardium * There is no pericardial effusion present. IVC * The IVC is not well evaluated. Consult Discharge Plan - Plan Instructions: Heart Failure (DC), Acute Respiratory Distress Syndrome (DC), Chronic Obstructive Pulmonary Disease (DC) Referrals: Amaris Wood CNP [Primary Care Provider] - 09/11/17 10:00 am ()
[2017-09-05] MEDS: Doxycycline 100 MG CAPSULE PO SCH ×2 (16:34→21:17)
[2017-09-05 20:32] LABS: CK-MB (CK isoenzymes) 0 % (0-4); CK-MM (CK-isoenzymes) 100 % (96-100)
[2017-09-05 20:32] LABS: CK-BB (CK isoenzymes) 0 % (0-0); CK-MB (CK isoenzymes) 0 % (0-4); CK-MM (CK-isoenzymes) 100 % (96-100)
[2017-09-05] MEDS: Gabapentin 300 MG CAPSULE PO SCH (21:17)
[2017-09-06] MEDS: Ipratropium/Albuterol Neb 3 ML IH SCH ×5 (00:33→15:49)
[2017-09-06] MEDS: *HR* Heparin 5,000 UNIT/ML VIAL SQ SCH ×2 (06:39→17:17)
[2017-09-06 07:43] LABS: CK Total (Ck Isoenzymes) 157 U/L (20-200)
[2017-09-06 07:43] LABS: CK Total (Ck Isoenzymes) 56 U/L (20-200); CK-BB (CK isoenzymes) 0 % (0-0)
[2017-09-06] MEDS: Insulin LISPRO 300 UNITS/3 ML VIAL SQ SCH ×4 (07:57→20:57)
[2017-09-06] MEDS: *HR* Glimepiride 4 MG TABLET PO SCH (08:05)
[2017-09-06] MEDS: Fenofibrate 54 MG TABLET PO SCH (08:05)
[2017-09-06] MEDS: Doxycycline 100 MG CAPSULE PO SCH (08:05)
[2017-09-06] MEDS: Nystatin POWDER 30 GM BOTTLE TP SCH ×2 (08:06→20:59)
[2017-09-06] MEDS: predniSONE 20 MG TABLET PO SCH (08:06)
[2017-09-06] MEDS: Aspirin Enteric Coated 81 MG Tablet PO SCH (08:06)
[2017-09-06] MEDS: Ammonium Lactate 30 APPL/225 GM BOTTLE TP SCH ×2 (08:06→20:58)
[2017-09-06 08:54] LABS: Basophils % 0.3 %; Eosinophils # 0.1 K/mcL (0.0-0.6); Eosinophils % 1.2 %; Hematocrit 53.6 % (37.5-50.1); Hemoglobin 16.7 g/dL (12.9-16.9); Immature Granulocytes % 0.8 % (0-4); Lymphocytes # 1.1 K/mcL (0.6-4.6); Lymphocytes % 13.7 %; Mean Corpuscular HGB Conc 31.2 g/dL (31.6-35.5); Mean Corpuscular Volume 93.2 fL (83.0-100.0); Mean Platelet Volume 10.9 fL (9.4-12.4); Monocytes # 0.7 K/mcL (0.0-1.3); Neutrophils # 5.8 K/mcL (1.6-8.9); Platelet Count 186 K/mcL (140-400); Red Blood Count 5.75 M/mcL (4.19-5.50); Red Cell Distribution Width 14.8 % (11.5-14.5)
[2017-09-06 09:02] LABS: BUN/Creatinine Ratio 47 (6-26); Blood Urea Nitrogen 60 mg/dL (8-26); Calcium 9.4 mg/dL (8.6-10.8); Chloride 90 mEq/L (98-109); Glucose 155 mg/dL (70-99); Osmolality,Calculated 314 (280-300); Sodium 142 mEq/L (136-145); eGFR For African Americans > 60 (> 60); eGFR For Non-African Americans 55 (> 60)
[2017-09-06 09:06] LABS: Potassium 4.2 mEq/L (3.5-4.5)
[2017-09-06 09:11] LABS: Carbon Dioxide 42 mEq/L (19-29)
[2017-09-06] MEDS: Furosemide 40 MG/4 ML VIAL IVP SCH (09:26)
[2017-09-06] MEDS: Furosemide 40 MG TABLET PO SCH ×2 (11:56→17:16)
--- NOTE | 2017-09-06 13:36 | Cardiology Progress Note ---
Date of Encounter: 09/06/17 Time of Encounter: 13:30 Assessment and Plan (1) CHF exacerbation Current Visit: Yes Status: Acute Mild diastolic CHF. TTE shows preserved EF and only mild diastolic dysfunction. Symptoms multi-factoral in the setting of COPD exacerbation and high sodium diet. BNP 149. No further cardiac testing. Patient reported high sodium diet. Low sodium diet discussed. Consider lift builder whole consult. Continue oral lasix as needed. Net negative [id number]. Stict I&O and daily weights. Cardiology signing off. Out-pt f/u will be coordinated by [facility]. Qualifiers: Congestive heart failure type: diastolic Qualified Code(s): I50.33 - Acute on chronic diastolic (congestive) heart failure (2) CAD (coronary artery disease) Current Visit: Yes Status: Acute History of CAD s/p 3V CABG 2001. Denies chest pain. Continue asa, tricor. Add low dose betablocker. Qualifiers: Coronary Disease-Associated Artery/Lesion type: [place] artery [place] vs. transplanted heart: [place] heart Associated angina: without angina Qualified Code(s): I25.10 - Atherosclerotic heart disease of [place] coronary artery without angina pectoris Discussion w patient/family: The assessment and plan as outlined above was discussed with the patient and/or family members who expressed understanding and agreement. All questions were answered. Thank you for involving us in the care of your patient. Please call with any questions. Subjective Principal diagnosis: DCHF, COPD Objective Vital Signs, Last 4 Hours Resp Pulse Ox 09/06/17 11:42 16 94 09/06/17 09:36 96 Results 09/06/17 08:37 09/06/17 08:37 Lab Results 09/06/17 09/06/17 08:37 08:37 WBC 7.8 Hgb 16.7 Hct 53.6 H Plt Count 186 Sodium 142 Potassium 4.2 Chloride 90 L Carbon Dioxide 42 H* BUN 60 H Creatinine 1.27 H Glucose 155 H Calcium 9.4 Consult Discharge Plan - Plan Instructions: Heart Failure (DC), Acute Respiratory Distress Syndrome (DC), Chronic Obstructive Pulmonary Disease (DC) Referrals: Amaris Wood MANAGER DOMESTIC [Primary Care Provider] - 09/11/17 10:00 am ()
[2017-09-06 14:46] LABS: ABG Base Excess 13 mEq/L (-2 to 3); ABG HCO3 42 mEq/L (21-27); ABG Oxygen Saturation 96 % (95-98); ABG PCO2 59 mmHg (35-45); ABG PH 7.46 pH Units (7.32-7.45); ABG PO2 80 mmHg (85-104); ABG TCO2 43 mEq/L (20-26)
--- NOTE | 2017-09-06 18:15 | Internal Med Progress Note ---
Date of Encounter: 09/06/17 Time of Encounter: 11:00 - Assessment and plan (1) Acute and chronic respiratory failure with hypoxia Current Visit: Yes Status: Acute Assessment and plan: -Suspect secondary to acute on chronic systolic heart failure and COPD exacerbation. -Management as below. (2) Acute on chronic diastolic (congestive) heart failure Current Visit: Yes Status: Acute Assessment and plan: -Echocardiogram on 09/04/17 showed: LVEF 60%. Mild left ventricular diastolic dysfunction. Normal right ventricular structure and function. No significant valvular dysfunction. No pulmonary hypertension -Cardiology was consult and suspects mild diastolic dysfunction; no urgent intervention required at this time. -Recommendations for outpatient stress test after discharge to rule out any ischemic etiology. -Will continue IV diuresis; patient has diuresed over 11 L since admission. (3) COPD exacerbation Current Visit: Yes Status: Acute Assessment and plan: -Continue oral prednisone with nebulizer treatment (4) Cellulitis Current Visit: Yes Status: Resolved Assessment and plan: -Erythema has resolved. -Suspect bilateral erythema secondary to lower extremity edema due to volume overload and less likely infection. -Antibiotics have been discontinued Qualifiers: Site of cellulitis: extremity Site of cellulitis of extremity: lower extremity Laterality: unspecified laterality Qualified Code(s): L03.119 - Cellulitis of unspecified part of limb (5) DVT prophylaxis Current Visit: Yes Status: Acute Assessment and plan: Subcutaneous heparin - Subjective Interval history: Patient's lower extremity edema has improved with IV diuresis. - Constitutional Vitals: Temp Pulse Resp BP Pulse Ox 97.6 F 101 17 137/76 95 09/06/17 17:04 09/06/17 17:04 09/06/17 17:04 09/06/17 17:04 09/06/17 17:04 - Respiratory Respiratory exam: Present: CTAB. Absent: accessory muscle use, rales, rhonchi, wheezes - Cardiovascular Cardiovascular exam: Present: RRR, +S1, +S2. Absent: diastolic murmur, gallop, rubs, systolic murmur - Expanded Lower Extremities Exam Lower Leg exam: Present: swelling (Decreased bilateral lower extremity edema) - Skin Skin exam: Absent: erythema Additional comments: Resolved bilateral lower extremity erythema Internal Medicine: Result - Labs CBC & Chem 7: 09/06/17 08:37 09/06/17 08:37 Labs: Short CBC 09/06/17 Range/Units 08:37 WBC 7.8 (4.3-11.1) K/mcL Hgb 16.7 (12.9-16.9) g/dL Hct 53.6 H (37.5-50.1) % Plt Count 186 (140-400) K/mcL Neutrophils # 5.8 (1.6-8.9) K/mcL BMP 09/06/17 08:37 Sodium 142 Potassium 4.2 Chloride 90 L Carbon Dioxide 42 H* BUN 60 H Creatinine 1.27 H Glucose 155 H Calcium 9.4 Cardiac Enzymes 09/03/17 09/03/17 Range/Units 03:21 11:26 CK-MB (CK-2) 0 0 (0-4) % - ABG Interpretation ABG results: ABG ABG pH 7.46 pH Units (7.32-7.45) H 09/06/17 14:42 ABG pCO2 59 mmHg (35-45) H 09/06/17 14:42 ABG pO2 80 mmHg (85-104) L 09/06/17 14:42 ABG O2 Saturation 96 % (95-98) 09/06/17 14:42 Consult Discharge Plan - Plan Instructions: Heart Failure (DC), Acute Respiratory Distress Syndrome (DC), Chronic Obstructive Pulmonary Disease (DC) Referrals: Amaris Wood CNP [Primary Care Provider] - 09/11/17 10:00 am ()
[2017-09-06] MEDS: Gabapentin 300 MG CAPSULE PO SCH (20:58)
[2017-09-07] MEDS: Ipratropium/Albuterol Neb 3 ML IH SCH ×6 (00:06→15:25)
[2017-09-07] MEDS: *HR* Heparin 5,000 UNIT/ML VIAL SQ SCH (05:55)
[2017-09-07] MEDS: Insulin LISPRO 300 UNITS/3 ML VIAL SQ SCH ×3 (07:12→16:50)
[2017-09-07] MEDS: predniSONE 20 MG TABLET PO SCH (09:27)
[2017-09-07] MEDS: Fenofibrate 54 MG TABLET PO SCH (09:27)
[2017-09-07] MEDS: *HR* Glimepiride 4 MG TABLET PO SCH (09:28)
[2017-09-07] MEDS: Aspirin Enteric Coated 81 MG Tablet PO SCH (09:28)
[2017-09-07] MEDS: Ammonium Lactate 30 APPL/225 GM BOTTLE TP SCH (09:28)
[2017-09-07] MEDS: Furosemide 40 MG TABLET PO SCH ×2 (09:28→11:44)
[2017-09-07] MEDS: Nystatin POWDER 30 GM BOTTLE TP SCH (09:28)
[2017-09-07 09:48] LABS: Basophils # 0.1 K/mcL (0.0-0.2); Basophils % 0.6 %; Eosinophils # 0.1 K/mcL (0.0-0.6); Eosinophils % 1.4 %; Hematocrit 55.9 % (37.5-50.1); Hemoglobin 17.1 g/dL (12.9-16.9); Immature Granulocytes % 1.5 % (0-4); Lymphocytes # 1.3 K/mcL (0.6-4.6); Lymphocytes % 14.9 %; Mean Corpuscular HGB Conc 30.6 g/dL (31.6-35.5); Mean Corpuscular Hemoglobin 28.7 pg (28.0-33.3); Mean Corpuscular Volume 93.9 fL (83.0-100.0); Mean Platelet Volume 11.3 fL (9.4-12.4); Monocytes # 0.8 K/mcL (0.0-1.3); Monocytes % 8.6 %; Neutrophils # 6.5 K/mcL (1.6-8.9); Platelet Count 180 K/mcL (140-400); Red Blood Count 5.95 M/mcL (4.19-5.50); Red Cell Distribution Width 14.1 % (11.5-14.5)
[2017-09-07 09:59] LABS: ABG Base Excess 14 mEq/L (-2 to 3); ABG HCO3 42 mEq/L (21-27); ABG Oxygen Saturation 97 % (95-98); ABG PCO2 61 mmHg (35-45); ABG PH 7.44 pH Units (7.32-7.45); ABG PO2 94 mmHg (85-104); ABG TCO2 44 mEq/L (20-26)
[2017-09-07 10:03] LABS: Calcium 9.7 mg/dL (8.6-10.8); Potassium 4.1 mEq/L (3.5-4.5)
--- NOTE | 2017-09-07 15:18 | Discharge Summary ---
Date of Encounter: 09/07/17 Time of Encounter: 11:00 - Discharge Diagnosis (1) Acute and chronic respiratory failure with hypoxia Priority: Primary Status: Acute (2) Acute on chronic diastolic (congestive) heart failure Priority: Primary Status: Acute (3) COPD exacerbation Priority: Primary Status: Acute (4) Cellulitis Priority: Secondary Status: Resolved Qualifiers: Site of cellulitis: extremity Site of cellulitis of extremity: lower extremity Laterality: unspecified laterality Qualified Code(s): L03.119 - Cellulitis of unspecified part of limb - Discharge Medications Prescriptions: Gabapentin [Neurontin] 600 mg PO HS #10 capsule Oxycodone HCl/Acetaminophen [Percocet 7.5-325 mg Tablet] 1 each PO Q4-6H PRN # 10 tablet PRN Reason: Pain Home Medications: Aspirin Enteric Coated [Aspirin EC] 81 mg PO DAILY 06/27/15 [History] Fenofibrate [Lofibra] 160 mg PO DAILY 06/27/15 [History] Furosemide [Lasix] 40 mg PO TID 06/27/15 [History] Gabapentin [Neurontin] 900 mg PO QAM 06/27/15 [History] Albuterol Sulfate [Albuterol Inhaler] 2 puff IH Q4H PRN 09/02/17 [History] Gabapentin [Neurontin] 600 mg PO HS 09/02/17 [History] Glimepiride [Amaryl] 4 mg PO QAM 09/02/17 [History] Lisinopril [Zestril] 20 mg PO DAILY 09/02/17 [History] Oxygen 2 l NS AD 09/02/17 [History] Gabapentin [Neurontin] 600 mg PO HS #10 capsule 09/07/17 [Rx] Oxycodone HCl/Acetaminophen [Percocet 7.5-325 mg Tablet] 1 each PO Q4-6H PRN # 10 tablet 09/07/17 [Rx] Allergies/Adverse Reactions: 3 Allergy/AdvReac Type Severity Reaction Status Date / Time sulfamethoxazole Allergy Nausea Verified 06/13/15 09:51 [From Bactrim] trimethoprim [From Bactrim] Allergy Nausea Verified 06/13/15 09:51 Procedures/tests Complete & Pending: Procedures Performed prior 72 hours Category Date Time Status EV echocardiogram w enhance Routine Y 09/04/17 18:42 Completed Date of admission: 09/02/17 22:58 Primary care physician: Amaris Wood CNP Consults: 09/03/17 14:30 Consult to Physical Therapy [CONS] Routine Comment: Evaluate, develop and implement POC Reason for Consult: eval for weakness 09/05/17 08:33 Consult to Cardiology [CONS] Routine Comment: Consulting Provider: Bandar Connell Reason for Consult: acute on chronic systolic heart failure Call Completed: No 09/05/17 11:57 dietary consult [Consult to Nutrition] [CONS] Routine Comment: Consulting Provider: NUTRITION Reason for Dietary Consult: Diet Education 09/06/17 08:02 Consult to Invasive Line Access Team [CONS] Routine Reason for Consult: Previous power glide lost during the night, pt has limited access Line Type: EPIV - Patient Status Disposition: Transfer Hospital Swing Bed Condition: Undetermined - Discharge Instructions Instructions: Heart Failure (DC), Acute Respiratory Distress Syndrome (DC), Chronic Obstructive Pulmonary Disease (DC) Follow Up With: Amaris Wood CNP [Primary Care Provider] - 09/11/17 10:00 am () Hospital course: Patient is an 82 year old male with past medical history significant for ischemic cardiomyopathy, LEIGHANN, COPD, hypertension, diabetes, hyperlipidemia and venous stasis who presented to the ER on 09/02/17 with shortness of breath. He reported of progressively worsening shortness of breath days prior to admission. In addition patient also reported of increased bilateral lower extremity edema. In addition, patient also reported of a productive cough. In the ER, chest x-ray showed findings suspicious for vascular congestion. Patient was admitted to the medical floor for COPD exacerbation secondary to acute on chronic diastolic heart failure. During patients hospital stay, he was treated for acute COPD exacerbation with IV antibiotics and steroids which were later discontinued. Patient was also treated with IV Lasix for acute on chronic diastolic heart failure and diuresed well. Cardiology was consulted and suspected heart failure secondary to noncompliance to diet. Patient is not able to ambulate and therefore physical therapy was consulted with recommendation for [facility]iary facility for strength/conditioning. He is medically stable to be transferred to penitentiary facility for further management. - Time Spent with Patient Total time spent providing and/or coordinating discharge services: Less than 30 minutes - Constitutional Vitals: Temp Pulse Resp BP Pulse Ox 98.0 F 76 21 137/86 98 09/07/17 10:54 09/07/17 10:54 09/07/17 11:24 09/07/17 10:54 09/07/17 11:24 - Respiratory Respiratory exam: Present: CTAB. Absent: accessory muscle use, rales, rhonchi, wheezes - Cardiovascular Cardiovascular exam: Present: RRR, +S1, +S2. Absent: diastolic murmur, gallop, rubs, systolic murmur
--- NOTE | 2017-09-07 15:20 | Physician Discharge Referral ---
ExtendedCare Referral Info Transfer To: [facility] Institutional Level of Care: Skilled - Diagnosis (1) Acute and chronic respiratory failure with hypoxia Status: Acute (2) Acute on chronic diastolic (congestive) heart failure Priority: Primary Status: Acute (3) COPD exacerbation Status: Acute (4) Cellulitis Status: Resolved - Transfer Medications Prescriptions: Gabapentin [Neurontin] 600 mg PO HS #10 capsule Oxycodone HCl/Acetaminophen [Percocet 7.5-325 mg Tablet] 1 each PO Q4-6H PRN # 10 tablet PRN Reason: Pain Home Medications: Aspirin Enteric Coated [Aspirin EC] 81 mg PO DAILY 06/27/15 [History] Fenofibrate [Lofibra] 160 mg PO DAILY 06/27/15 [History] Furosemide [Lasix] 40 mg PO TID 06/27/15 [History] Gabapentin [Neurontin] 900 mg PO QAM 06/27/15 [History] Albuterol Sulfate [Albuterol Inhaler] 2 puff IH Q4H PRN 09/02/17 [History] Gabapentin [Neurontin] 600 mg PO HS 09/02/17 [History] Glimepiride [Amaryl] 4 mg PO QAM 09/02/17 [History] Lisinopril [Zestril] 20 mg PO DAILY 09/02/17 [History] Oxygen 2 l NS AD 09/02/17 [History] Gabapentin [Neurontin] 600 mg PO HS #10 capsule 09/07/17 [Rx] Oxycodone HCl/Acetaminophen [Percocet 7.5-325 mg Tablet] 1 each PO Q4-6H PRN # 10 tablet 09/07/17 [Rx] Allergies/Adverse Reactions: 3 Allergy/AdvReac Type Severity Reaction Status Date / Time sulfamethoxazole Allergy Nausea Verified 06/13/15 09:51 [From Bactrim] trimethoprim [From Bactrim] Allergy Nausea Verified 06/13/15 09:51 - Respiratory Orders Smoking Cessation: Smoking cessation has been advised. For more information, call the [place] Tobacco Quit Line at 6-795-HEHH-NOW. CERTIFICATION: I certify that the transfer of the above named patient to an Extended Care Facility is necessary for the continuing treatment of the diagnosis listed. The above information is true and accurate reflection of patient's current condition. Confidential - Redisclosure prohibited without a patient's written consent.
[2017-09-07 15:28] LABS: ABG Base Excess 12 mEq/L (-2 to 3); ABG HCO3 42 mEq/L (21-27); ABG Oxygen Saturation 96 % (95-98); ABG PCO2 68 mmHg (35-45); ABG PO2 83 mmHg (85-104); ABG TCO2 44 mEq/L (20-26)
[2017-09-07 15:43] VITALS: BP 133/67
[2017-09-07] MEDS ORDERED: FLUARIX QUAD 2017-18 36MOS UP/PF 0.5 ML SYRINGE IM ONE (16:32)
== END 2017-09-07 18:25 | disposition other institution (70) | DRG 291 ==
LOC: EMEROO 18:22 → 2ANU 18:22 → SUATTDRO 22:58
PROVIDERS: ADMIT Internal Medicine; ATTEND Hospitalist